=== PATIENT | female | born 1995 | race African-American/Black ===

== ENCOUNTER 2022-03-04 17:10 | Emergency (ER) | payer OTHER, MEDICAID ==
[~2022-03-04] VITALS: Ht 165.1 cm; Wt 85.0 kg
[2022-03-04 17:21] VITALS: BP 148/81
== END 2022-03-04 23:54 | disposition home or self-care (01) ==
LOC: ER 17:10
DX: R51.9 Headache, unspecified (principal); I10 Essential (primary) hypertension